=== PATIENT | male | born 1985 | race Caucasian/White ===

== ENCOUNTER 2018-03-09 19:39 | Emergency (ER) | payer OTHER ==
[~2018-03-09] VITALS: Ht 165.1 cm; Wt 68.2 kg
[2018-03-09 19:41] VITALS: BP 155/91
[2018-03-09] MEDS ORDERED: tetanus & diphtheria toxoid (Td) vaccine 0.5ml IMVAC ONE (19:50)
[2018-03-09] MEDS ORDERED: TETanus/Pertussis (Acell)/Diphther VAC/PF (Tdap-Adult) 0.5ml syringe IMVAC ONE (19:55)
== END 2018-03-09 20:17 ==
LOC: ER 19:40
DX: Z02.89 Encounter for other administrative examinations (principal); S00.01XA Abrasion of scalp, initial encounter; F10.129 Alcohol abuse with intoxication, unspecified; V49.59XA Passenger injured in collision with other motor vehicles in traffic accident, initial encounter; Y93.89 Activity, other specified; Y92.413 State road as the place of occurrence of the external cause; Y99.9 Unspecified external cause status
CPT/HCPCS: 90471; 90715; 99283

== ENCOUNTER 2025-04-06 07:51 | Inpatient (IN) | payer BC ==
[2025-04-03 17:15] LABS: LEUKOCYTE ESTERASE ,URINE NEGATIVE (Neg); NITRITES, URINE NEGATIVE (Neg); OCCULT BLOOD,URINE MODERATE (Neg)
[2025-04-03 17:18] LABS: UA COLLECTION TYPE NON-SPECIFIED
[2025-04-03 17:22] LABS: MEAN PLATELET VOLUME 6.9 FL (7.4-10.4); PRE OP HEMATOCRIT 45.7 % (42.0-52.0); PRE OP HEMOGLOBIN 16.0 g/dL (14.0-17.9); PRE OP WHITE BLOOD COUNT 6.3 10'3 (4.8-10.8); RED CELL DISTRIBUTION WIDTH 14.2 % (11.5-14.5)
[2025-04-03 17:32] LABS: PRE OP INR 1.0 INR; PRE OP PROTIME 10.3 SECONDS (9.0-12.0)
[2025-04-03 17:37] LABS: CREATININE 0.90 MG/DL (0.60-1.10); ETHANOL 231 MG/DL (<10); MUCUS STRANDS NONE SEEN /LPF (Neg); PRE OP ANION GAP 11 (8-16); PRE OP BILIRUB, TOTAL 0.7 MG/DL (0.0-1.0); PRE OP GLUCOSE 121 MG/DL (70-104); PRE OP SODIUM 140 MMOL/L (135-145); SQUAMOUS EPITHELIAL CELL,UR NONE SEEN /LPF (FEW); TOTAL CARBON DIOXIDE 30.2 MMOL/L (24-32); eGFR > 90 ML/MIN
[2025-04-03 17:40] LABS: PRE OP POTASSIUM 3.3 MMOL/L (3.4-5.1)
[2025-04-03 17:41] LABS: PRE OP ALT 87 U/L (30-65); PRE OP AST 120 U/L (10-37)
--- NOTE | 2025-04-03 17:41 | ELECTROCARDIOGRAPH REPORT ---
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 PRADEEP Marrufo Measurements Intervals [place] Rate: 94 P: 60 MT: 153 QRS: 68 QRSD: 116 T: 1 QT: 355 QTc: 444 Interpretive Statements Sinus rhythm Incomplete right bundle branch block Probable left ventricular hypertrophy ST elev, probable normal early repol pattern Electronically Signed On 04-03-2025 20:22:[address] PRADEEP Marrufo Please click the below link to view image of tracing.
[2025-04-03 17:50] LABS: PRE OP PARTIAL THROMB. TIME 25.0 SECONDS (22-32)
[2025-04-03 18:59] LABS: PRE OP PLATELET COUNT 44 X10'3 (140-440)
--- NOTE | 2025-04-03 21:15 | RADIOLOGY REPORT ---
CHEST RADIOGRAPH Indication: PRE OP CXR, pain Technique: Frontal and lateral view of the chest was obtained Comparison: None FINDINGS: Lines and Tubes: None Lungs: Clear Pleura: No effusion. No pneumothorax. Cardiomediastinal contours: Unremarkable Bones: Unremarkable IMPRESSION: No evidence of acute disease.
[~2025-04-06] VITALS: Ht 167.6 cm; Wt 86.7 kg
[2025-04-06] VITALS (18 sets, daily range): BP systolic 72–168; BP diastolic 41–92; PULSE 69–167; RESP 12–23; TEMP 97.2–98.8; O2SAT 40–100
[2025-04-06 06:35] LABS: ABG BASE EXCESS 4.6 mmol/L (-2.0-3.0); ABG HCO3 27.4 mmol/L (21.0-28.0); ABG OXYGEN SATURATION 91.6 % (94.0-98.0); ABG PCO2 (T) 35.2 mmHg (35.0-48.0); ABG PH (T) 7.509 (7.350-7.450); ABG PO2 (T) 58.4 mmHg (83.0-108.0); ALLEN'S TEST POSITIVE; FCOHb 6.5 % (0.5-1.5); FHHb 7.8 % (0.0-5.0); FIO2 21.0 mmHg/%; FMetHb 0.1 % (0.0-1.5); FO2Hb 85.6 % (94.0-98.0); MODE RA; PATIENT TEMPERATURE 37.0; TOTAL HEMOGLOBIN 17.0 G/dl (13.5-17.5)
[~2025-04-06 07:51] MED LIST: LOSA-415 PO; dextrose 50%-water 50ml dispensing syringe IV PRN; insulin glargine (Lantus) pen - multi-dose SQ PRN; midazolam 1 mg/ML 2ml injection IV PRN
[2025-04-06] MEDS ORDERED: vancomycin 1,000mg inj ONE (07:54)
[2025-04-06 08:58] LABS: MEAN PLATELET VOLUME 8.2 FL (7.4-10.4); PRE OP HEMATOCRIT 43.2 % (42.0-52.0); PRE OP HEMOGLOBIN 14.9 g/dL (14.0-17.9); PRE OP WHITE BLOOD COUNT 6.0 10'3 (4.8-10.8); RED CELL DISTRIBUTION WIDTH 14.4 % (11.5-14.5)
[2025-04-06 09:04] LABS: TOTAL CARBON DIOXIDE 24.6 MMOL/L (24-32)
[2025-04-06 09:05] LABS: CREATININE 0.74 MG/DL (0.60-1.10); eCRCL 120 ML/MIN; eGFR > 90 ML/MIN
[2025-04-06 09:10] LABS: ETHANOL < 10 MG/DL (<10)
[2025-04-06] MEDS ORDERED: SUfentanil 50mcg/ml 1ml amp IV ONE (09:18)
[2025-04-06] MEDS ORDERED: MIDAZolam 1mg/ml 10ml vial ONE (09:18)
[2025-04-06 09:25] LABS: PRE OP PLATELET COUNT 38 X10'3 (140-440)
[2025-04-06] MEDS ORDERED: fentaNYL/PF 50MCG/1 ML 2ML syringe IV PRN (09:30)
[2025-04-06] MEDS ORDERED: midazolam 100mg in NS 100ml 100 ML IV SCH (09:30)
[2025-04-06] MEDS ORDERED: FENTANYL-0.9 % NACL/PF 100 ML IV SCH (09:30)
[2025-04-06] MEDS: metoprolol tartrate 12.5mg (1/2 tablet) PO ONE (09:51)
[2025-04-06] MEDS: mupirocin 2% nasal ointment 1gm UD NS ONE (09:54)
[2025-04-06] MEDS: ceFAZolin 2gm/dext,iso 50mL 50 ML IV ONE (09:54)
[2025-04-06] MEDS: VANCOMYCIN/WATER FOR INJ (PEG) 1.5GM/300 ML IVPB IV ONE (09:56)
[2025-04-06 10:14] LABS: INR 1.0 INR; PRE OP PARTIAL THROMB. TIME 24 SECONDS (22-32)
[2025-04-06] MEDS: midazolam 1 mg/ML 2ml injection IV ONE (11:53)
[2025-04-06 12:27] LABS: ABG BASE EXCESS -0.5 mmol/L (-2.0-3.0); ABG HCO3 23.7 mmol/L (21.0-28.0); ABG OXYGEN SATURATION 99.6 % (94.0-98.0); ABG PCO2 37.8 mmHg (35.0-48.0); ABG PH 7.416 (7.350-7.450); CL (ABG) 104 mmol/L (98-107); FCOHb 0.5 % (0.5-1.5); FHHb 0.4 % (0.0-5.0); FMetHb 0.2 % (0.0-1.5); FO2Hb 98.9 % (94.0-98.0); GLUCOSE (ABG) 93 mg/dl (65-95); IONIZED CA (ABG) 1.10 mmol/L (1.15-1.33); K (ABG) 3.0 mmol/L (3.40-4.50); TOTAL HEMOGLOBIN 14.3 G/dl (13.5-17.5)
[2025-04-06] MEDS ORDERED: albumin (Human) 5% 250ml 250 ML IV ONE (12:28)
[2025-04-06] MEDS ORDERED: rocuronium 10mg/ml inj IV ONE ×3 (12:47→12:48)
[2025-04-06] MEDS ORDERED: propofol inj 20 ML IV ONE (12:47)
[2025-04-06] MEDS ORDERED: LIDOcaine 2% (20mg/ml) 5ml vial ONE (12:48)
[2025-04-06] MEDS ORDERED: 0.9 % SODIUM CHLORIDE 10 ML VIAL ONE (12:48)
[2025-04-06] MEDS: Insulin Reg/NS 100units/100mL 100 ML IV SCH ×3 (12:48→15:02)
[2025-04-06] MEDS ORDERED: phenylephrine 10mg/ml inj. ONE (12:48)
[2025-04-06] MEDS: ringers solution, lacted 1,000 ML IV SCH (12:48)
[2025-04-06] MEDS ORDERED: albumin (human) 25% 100 ML IV solution IV ONE (12:54)
[2025-04-06] MEDS ORDERED: isoflurane 100ml inhalation liquid IH ONE (12:54)
[2025-04-06 13:10] LABS: ACTIVATED CLOTTING TIME 519.0 SEC (101-148)
[2025-04-06 13:22] LABS: ABG BASE EXCESS -0.1 mmol/L (-2.0-3.0); ABG HCO3 24.7 mmol/L (21.0-28.0); ABG OXYGEN SATURATION 99.2 % (94.0-98.0); ABG PCO2 41.1 mmHg (35.0-48.0); ABG PH 7.397 (7.350-7.450); CL (ABG) 101 mmol/L (98-107); FCOHb 0.3 % (0.5-1.5); FHHb 0.8 % (0.0-5.0); FMetHb 0.1 % (0.0-1.5); FO2Hb 98.8 % (94.0-98.0); GLUCOSE (ABG) 118 mg/dl (65-95); IONIZED CA (ABG) 0.98 mmol/L (1.15-1.33); K (ABG) 3.4 mmol/L (3.40-4.50); TOTAL HEMOGLOBIN 11.0 G/dl (13.5-17.5)
[2025-04-06 13:30] LABS: ACT @ 1.70 U 262 SEC (193-297); ACT @ 2.84 U 343 SEC (260-420); BASELINE ACT 125 SEC (101-148); PATIENT WEIGHT 81.6k KG
[2025-04-06 13:33] LABS: ACTIVATED CLOTTING TIME 599.0 SEC (101-148)
[2025-04-06 13:49] LABS: ABG BASE EXCESS -2.7 mmol/L (-2.0-3.0); ABG HCO3 22.3 mmol/L (21.0-28.0); ABG OXYGEN SATURATION 99.4 % (94.0-98.0); ABG PCO2 39.3 mmHg (35.0-48.0); ABG PH 7.371 (7.350-7.450); CL (ABG) 102 mmol/L (98-107); FCOHb 0.3 % (0.5-1.5); FHHb 0.6 % (0.0-5.0); FMetHb 0.1 % (0.0-1.5); FO2Hb 99.0 % (94.0-98.0); GLUCOSE (ABG) 154 mg/dl (65-95); IONIZED CA (ABG) 1.02 mmol/L (1.15-1.33); K (ABG) 3.6 mmol/L (3.40-4.50); TOTAL HEMOGLOBIN 11.5 G/dl (13.5-17.5)
[2025-04-06 13:59] LABS: ACTIVATED CLOTTING TIME 499.0 SEC (101-148)
[2025-04-06 14:13] LABS: ABG BASE EXCESS -0.5 mmol/L (-2.0-3.0); ABG HCO3 23.4 mmol/L (21.0-28.0); ABG OXYGEN SATURATION 99.2 % (94.0-98.0); ABG PCO2 35.6 mmHg (35.0-48.0); ABG PH 7.436 (7.350-7.450); CL (ABG) 103 mmol/L (98-107); FCOHb 0.0 % (0.5-1.5); FHHb 0.8 % (0.0-5.0); FMetHb 0.3 % (0.0-1.5); FO2Hb 98.9 % (94.0-98.0); GLUCOSE (ABG) 148 mg/dl (65-95); IONIZED CA (ABG) 1.20 mmol/L (1.15-1.33); K (ABG) 3.3 mmol/L (3.40-4.50); TOTAL HEMOGLOBIN 10.3 G/dl (13.5-17.5)
[2025-04-06 14:16] LABS: ACTIVATED CLOTTING TIME 118 SEC (101-148)
[2025-04-06] MEDS ORDERED: dexamethasone sod phosphate 4mg/ml inj. ONE (14:34)
[2025-04-06] MEDS ORDERED: ondansetron/PF 4mg/2ml inj ONE (14:34)
[2025-04-06] MEDS ORDERED: dextrose 50%-water 50ml dispensing syringe IV PRN (14:45)
[2025-04-06] MEDS ORDERED: potassium CL 10mEq/100ml bag 100 ML IV PRN (14:45)
[2025-04-06] MEDS ORDERED: potassium Cl 40MEQ/270ML bag 250 ML IV PRN (14:45)
[2025-04-06] MEDS ORDERED: bisacodyl 10mg suppository rectal RC PRN (14:45)
[2025-04-06] MEDS ORDERED: magnesium sulf-water 4G/100mL 100 ML IV PRN (14:45)
[2025-04-06] MEDS ORDERED: mineral oil 133ml enema RC PRN (14:45)
[2025-04-06] MEDS ORDERED: niCARDipine-NS 40mg/200ml IVPB 200 ML IV PRN (14:45)
[2025-04-06] MEDS ORDERED: sodium phosphate inj. 30 MMOL in dextrose 5%-water 250 ML IV PRN (14:45)
[2025-04-06] MEDS ORDERED: potassium Cl 40MEQ/1/2NS 520ml 520 ML IV PRN (14:45)
[2025-04-06] MEDS ORDERED: insulin glargine (Lantus) pen - multi-dose SQ PRN (14:45)
[2025-04-06] MEDS ORDERED: NORepinephrine 8mg/ 250ml NS 250 ML IV PRN (14:45)
[2025-04-06] MEDS ORDERED: metoclopramide 5 mg/ml inj IV PRN (14:45)
--- NOTE | 2025-04-06 14:52 | OPERATIVE REPORT ---
Operative Report Operative Report Cardiovascular surgery operative report 06 April 2025 Preoperative diagnosis: severe mitral insufficiency, severe thrombocytopenia, ETOH abuse Postop diagnosis: Same Procedure: Mitral valve repair with a quadrangular resection of P2 scallop and 34 mm physio two ring annuloplasty Surgeon: Dr. Cruz Walters assistant professor surgical technology: Dr. Tomy Richter and Jamar Carpenter PA-C Anesthesia: General via endotracheal tube Dr. Mathias Complications: None EBL: 200 mL Procedure: With the patient was taken to the operating room placed in the supine position. Following the induction of general oral endotracheal anesthesia and the placement of appropriate lines for monitoring the anterior chest, abdomen and bilateral lower extremities were prepped and draped sterilely. A median sternotomy was performed in standard fashion the patient was systemically heparinized. The pericardium was opened in midline and suspended. Single aortic and right atrial cannula were placed for cardiopulmonary bypass. After ensuring an ACT of greater than 300 seconds cardiopulmonary bypass was instituted. The aorta was crossclamped and the heart was arrested with cold blood [place] cardioplegia delivered antegrade through the root. The left atrium was was opened anterior to the right superior pulmonary vein and a self-retaining retractor was placed. Visualization of the valve was good. 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 This area of the leaflet was carefully excised and the posterior annulus was plicated with the pledgeted mattress suture of 2-0 Ethibond. This reapproximated the cut edges of the posterior leaflet. These were reapproximated with interrupted riwbwn-ih-egsmce of five 0 Prolene. This recreated the posterior leaflet. The ventricle was distended with cold saline in the anterior leaflet was measured. A 34 mm physio two ring was chosen. This was implanted into the annulus using interrupted horizontal mattress sutures of pledgeted 2-0 Ethibond. The ring was easily seated and the sutures were then tied to complete the implant. The left ventricle was again distended with cold saline. There was no residual insufficiency. The orifice of the left atrial appendage was then oversewn with a double suture line of 4-0 Prolene for exclusion purposes. The atriotomy was then closed with a running 3-0 Prolene suture. Prior to completing and tying the suture line multiple Valsalva maneuvers were performed to facilitate de- airing of the pulmonary veins through the atrial suture line. This was then tied under a pool of blood to prevent any entrainment of air. The patient was given 1 L of warm blood antegrade while temporary pacing wires placed the anterior surface of the right ventricle and right atrium. With a suction vent in the ascending aorta on high the aortic crossclamp was removed. Ventilation was resumed and the patient was allowed to begin ejecting to a pressure of 80-90 millimeter of mercury. Transesophageal echocardiography was used to confirm adequacy of de-airing. At that point he was weaned from cardiopulmonary bypass and decannulated in standard fashion. Protamine solution was administered to reverse heparinization and careful hemostasis was achieved throughout the mediastinum. Platelets were also transfused two due to his preoperative severe thrombocytopenia. A 28 Spanish Jassi drain was placed through the diaphragmatic aspect of the pericardium with a 32 Spanish straight chest tube placed anterior to the mediastinum. These were both secured to skin with 1. Silk. The pericardial fat was loosely approximated in the midline with interrupted 2-0 Ethibond, taking away kinking or compression of the underlying grafts. The chest was then closed by 1st treating the sternal edges with vancomycin paste. The sternum was reapproximated in the midline with interrupted ivcqqj-mm-jalwdm of 7. Stainless steel wire in concert with zip fix sternal bands. The midline fascia, subcutaneous tissue and skin were closed in layers. Sterile dressings were applied and the chest tube was attached to water-seal. The patient was then returned to the ICU in critical but stable condition, having tolerated the procedure satisfactorily. There were no complications. Sponge, needle and instrument counts were correct x2 at the case. Jamar Carpenter PA-C was present for and assisted throughout the entire procedure. CRUZ WALTERS III, MD Apr 06, 2025 14:52
[2025-04-06 15:16] LABS: MEAN PLATELET VOLUME 7.4 FL (7.4-10.4); RED CELL DISTRIBUTION WIDTH 14.3 % (11.5-14.5)
[2025-04-06 15:17] LABS: ABG BASE EXCESS -0.5 mmol/L (-2.0-3.0); ABG HCO3 23.1 mmol/L (21.0-28.0); ABG OXYGEN SATURATION 99.2 % (94.0-98.0); ABG PCO2 (T) 32.8 mmHg (35.0-48.0); ABG PH (T) 7.462 (7.350-7.450); ABG PO2 (T) 177.6 mmHg (83.0-108.0); FCOHb 0.5 % (0.5-1.5); FHHb 0.8 % (0.0-5.0); FIO2 100.0 mmHg/%; FMetHb 0.3 % (0.0-1.5); FO2Hb 98.4 % (94.0-98.0); MODE SIMV VC; PATIENT TEMPERATURE 36.2; PEEP 5 cm H2O; RESPIRATORY RATE 12 b/min; TIDAL VOLUME 600 mL; TOTAL HEMOGLOBIN 10.9 G/dl (13.5-17.5)
--- NOTE | 2025-04-06 15:24 | ELECTROCARDIOGRAPH REPORT ---
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 PRADEEP Marrufo Measurements Intervals [place] Rate: 103 P: 179 DC: 109 QRS: 72 QRSD: 99 T: 31 QT: 394 QTc: 516 Interpretive Statements Sinus or ectopic atrial tachycardia RSR' in V1 or V2, probably normal variant Prolonged QT interval Electronically Signed On 04-07-2025 9:23:[address] PRADEEP Marrufo Please click the below link to view image of tracing.
[2025-04-06 15:29] LABS: APTT 29 SECONDS (22-32); INR 1.2 INR
--- NOTE | 2025-04-06 15:32 | RADIOLOGY REPORT ---
CHEST RADIOGRAPH Indication: POST OP Technique: Single frontal view of the chest was obtained Comparison: DI CHEST,TWO VIEWS on DOS: 04/03/25 FINDINGS: Lines and Tubes: Right swan-Rhiannon catheter tip in the pulmonary artery. Nasogastric tube tip in the s tomach. Endotracheal tube 5 cm from the crys. Right central venous catheter tip in the SVC. Media stinal drain is present. Lungs: No focal consolidation. Pleura: No effusion. No pneumothorax. Cardiomediastinal contours: Unremarkable Bones: No acute osseous abnormality. IMPRESSION: Status post median sternotomy.
[2025-04-06 15:33] LABS: CREATININE 0.69 MG/DL (0.60-1.10); PHOSPHORUS 3.6 MG/DL (2.3-4.5); TOTAL CARBON DIOXIDE 26.0 MMOL/L (24-32); eCRCL 128 ML/MIN; eGFR > 90 ML/MIN
[2025-04-06] MEDS: dexmedetomidin/NS 400mcg/100ml 100 ML IV PRN (15:43)
[2025-04-06] MEDS: morphine 4 MG/ML inj SYRINge IV PRN (15:43)
[2025-04-06] MEDS: albumin (Human) 5% 250ml 250 ML IV PRN (15:44)
[2025-04-06] MEDS: ceFAZolin/D5W- 1GM premix 50 ML IV SCH (16:36)
[2025-04-06] MEDS: potassium Cl 20mEq/100mL bag 100 ML IV PRN (16:37)
[2025-04-06] MEDS: amiodarone/D5 360MG/200ML BAG 200 ML IV SCH (17:18)
[2025-04-06] MEDS: metoprolol tartrate 1mg/ml inj IV STA (17:18)
[2025-04-06] MEDS: amiodarone 150mg/dext, iso-os 100 ML IV ONE (17:18)
[2025-04-06] MEDS: metoprolol tartrate 1mg/ml inj IV ONE (17:34)
[2025-04-06] MEDS: [UNRECOGNIZED DRUG - OTHER] PO SCH (17:34)
[2025-04-06] MEDS: ondansetron/PF 4mg/2ml inj IV PRN (17:43)
[2025-04-06] MEDS: vancomycin/NS 1 GM ADD-VANTAGE 250 ML IV SCH (19:43)
[2025-04-06] MEDS: ketorolac trometh 15mg/ml vial 15 MG/ML ML IV SCH (19:43)
[2025-04-06] MEDS: mupirocin 2% nasal ointment 1gm UD NS SCH (19:43)
[2025-04-06] MEDS: HYDROcodone/acetaminophen 10/325mg tab PO PRN (19:44)
[2025-04-06 20:25] LABS: MEAN PLATELET VOLUME 7.4 FL (7.4-10.4); RED CELL DISTRIBUTION WIDTH 14.0 % (11.5-14.5)
[2025-04-06 20:35] LABS: CREATININE 0.93 MG/DL (0.60-1.10); PHOSPHORUS 2.1 MG/DL (2.3-4.5); TOTAL CARBON DIOXIDE 21.8 MMOL/L (24-32); eCRCL 95 ML/MIN; eGFR 90 ML/MIN
[2025-04-06] MEDS: magnesium sulf-water 2g/50mL 50 ML IV PRN (20:53)
[2025-04-06] MEDS: sodium phosphate inj. 15 MMOL in dextrose 5%-water 250 ML IV PRN (22:00)
[2025-04-07] VITALS (26 sets, daily range): BP systolic 97–128; BP diastolic 50–73; PULSE 80; RESP 11–19; O2SAT 90–97
[2025-04-07 02:44] LABS: MEAN PLATELET VOLUME 7.9 FL (7.4-10.4); RED CELL DISTRIBUTION WIDTH 14.3 % (11.5-14.5)
[2025-04-07 03:04] LABS: CREATININE 0.72 MG/DL (0.60-1.10); PHOSPHORUS 4.2 MG/DL (2.3-4.5); TOTAL CARBON DIOXIDE 24.7 MMOL/L (24-32); eCRCL 123 ML/MIN; eGFR > 90 ML/MIN
--- NOTE | 2025-04-07 05:55 | RADIOLOGY REPORT ---
CHEST RADIOGRAPH Indication: POST OP Technique: Single frontal view of the chest was obtained Comparison: DI CHEST,SINGLE VIEW on DOS: 04/06/25, DI CHEST,TWO VIEWS on DOS: 04/03/25 FINDINGS: Lines and Tubes: Median sternotomy. Mediastinal drain and right central venous catheter in satisfact ory position. Lungs: No focal consolidation. Pleura: No effusion. No pneumothorax. Cardiomediastinal contours: Cardiomegaly Bones: No acute osseous abnormality. IMPRESSION: No acute cardiopulmonary disease.
[2025-04-07] MEDS: metoprolol tartrate 12.5mg (1/2 tablet) PO SCH (08:00)
--- NOTE | 2025-04-07 08:20 | PROGRESS NOTE ---
Progress Note CV Providers to CC ~ Antibiotics Ordered?: No Subjective Subjective S/P MV repair POD # 1. Alert, just got back from a walk. Pain is controlled. Did receive platelets yesterday. Objective Vitals Vital Signs Date Time Temp Pulse Resp B/P (MAP) Pulse Ox O2 Delivery O2 Flow Rate FiO2 04/07/25 08:00 97.9 80 12 97/50 (66) 92 Room Air 04/07/25 07:00 1.0 04/06/25 16:35 40 Lab Results: 04/07/25 0202 04/07/25 0202 Objective Lungs - fairly clear Heart - RRR, paced with junctional 40's underlying Abd/Extr - OK Incisions - CDI Coagulation Studies Laboratory Tests Test 04/06/25 12:34 04/06/25 14:20 04/06/25 15:00 Patient Sex (Coag) M Patient Height (Coag) 167cm Patient Weight (Coag) 81.6k KG Patient Blood Volume 5584 ML Pump Volume 1500 ML Total Blood Volume 7084 ML Projected Heparin Concentration 3.0 MG/KG Heparin [place] 86 Calculated Heparin Bolus 14014 UNITS Activated Coagulation Time Baseline 125 SEC (101-148) Activated Coag Time 1.70 U/mL 262 SEC (193-297) Activated Coag Time 2.84 U/mL 343 SEC (260-420) Heparin Level (COAG) 0 MG/KG Calculated Heparin Req (Hep Assay) 72073 UNITS Calculated Protamine Req (Hep Assay 0 MG Activated Clotting Time 118 SEC (101-148) Prothrombin Time 12.4 SECONDS (9.0-12.0) H INR International Normalized Ratio 1.2 INR Activated Partial Thromboplast Time 29 SECONDS (22-32) Coagulation Comments Cardiac Rhythm: AV Paced Problem\Assessment\Plan Additional Plan POD # 1 Doing very well. DC art line. Continue ambulation/ pulm toilet. Hgb 8.4, monitor. Sepsis Screening Reassessment Date: Apr 07, 2025 Supervising Co-signing Provider: LINDSAY Wong Apr 07, 2025 08:20
[2025-04-07 08:32] LABS: ABG PO2 403.9 mmHg (83.0-108.0)
[2025-04-07 08:32] LABS: ABG PO2 453.4 mmHg (83.0-108.0)
[2025-04-07 08:32] LABS: ABG PO2 432.0 mmHg (83.0-108.0)
[2025-04-07 08:33] LABS: ABG PO2 462.2 mmHg (83.0-108.0)
[2025-04-07] MEDS: INSULIN LISPRO 100 UNIT/ML INSULN.PEN MULTI-DOSE SQ SCH (12:54)
[2025-04-07] MEDS ORDERED: mineral oil/petrolatum ophthal oint EACHEYE SCH (14:00)
--- NOTE | 2025-04-07 18:22 | CARDIOLOGY REPORT ---
APPROVED REPORT EXAM: Intraoperative transesophageal 2D, 3D, spectral and color flow Doppler echocardiogram. Study contains pre- and post-op images. Patient Location: CVOR Blood Pressure: 136/90 mmHg Rhythm: SINUS Indications SEVERE MITRAL REGURGITATION WITH A FLAIL POSTERIOR LEAFLET HYPERTENSION - 2018 34 mm Hernan Kline Physio II MV ring CARMEN PROBE PASSED BY: Tatyana WILLIAMSON MD Fryer Operator: Mimi Hightower MD / CV SURGEON: Mark HDEZ MD Previous echo: 10/29/24 CVC EF: 65%; mLVE; mCLVH; nlRV; sevLAE; sevMVP-PML; mod/sevMR-ECCENTRIC; noP E; LEFT VENTRICLE PRE: Normal LV size and wall thickness. Overall systolic function is normal. LVEF is 55-60%. POST-OP: Unchanged. RIGHT VENTRICLE PRE: RV is normal size and function. POST: Unchanged. ATRIA PRE: The left atrium appears at least moderately dilated. POST: Unchanged. AORTIC VALVE PRE: Trileaflet AV appears minimally sclerotic without stenosis or insufficiency. POST-OP: Unchanged. MITRAL VALVE PRE: Normal MV annulus with thickened leaflets without stenosis. Posterior leaflet flail with severe eccentric (anterior directed) regurgitation. POST: 34 mm Hernan Kline Physio II MV ring repair appears well seated with normal function. No residual mitral regurgitation post repair with BP of 145 /88. Mean gradient of 3.33 mmHG. Peak velocity is measured at 124 cm/sec. TRICUSPID VALVE PRE: TV appears structurally normal with trace regurgitation. POST: Unchanged. PULMONIC VALVE PRE: Normal PV without stenosis, physiologic insufficiency. Jenks-Rhiannon catheter in the right heart acr oss the pulmonic valve. POST-OP: Unchanged. GREAT VESSELS PRE: Aortic root is normal in size. Ascending aorta is normal in size. POST-OP: Unchanged. PERICARDIUM PRE: Normal pericardium. No effusion. POST: Unchanged. CONCLUSION PRE: Normal LV size and wall thickness. Overall systolic function is normal. LVEF is 55-60%. POST-OP: Unchanged. PRE: RV is normal size and function. POST: Unchanged. PRE: The left atrium appears at nahid st moderately dilated. POST: Unchanged. PRE: Trileaflet AV appears minimally sclerotic without steno sis or insufficiency. POST-OP: Unchanged. PRE: Normal MV annulus with thickened leaflets without sten osis. Posterior leaflet flail with severe eccentric (anterior directed) regurgitation. POST: 34 mm Ca rpentier Kline Physio II MV ring repair appears well seated with normal function. No residual ju l regurgitation post repair with BP of 145/88. Mean gradient of 3.33 mmHG. Peak velocity is measured at 124 cm/sec. PRE: TV appears structurally normal with trace regurgitation. POST: Unchanged. PRE: No rmal pericardium. No effusion. POST: Unchanged. Conclusion PRE: Normal LV size and wall thickness. Overall systolic function is normal. LVEF is 55-60%. POST-OP: Unchanged. PRE: RV is normal size and function. POST: Unchanged. PRE: The left atrium appears at least moderately dilated. POST: Unchanged. PRE: Trileaflet AV appears minimally sclerotic without stenosis or insufficiency. POST-OP: Unchange d. PRE: Normal MV annulus with thickened leaflets without stenosis. Posterior leaflet flail with severe eccentric (anterior directed) regurgitation. POST: 34 mm Hernan Kline Physio II MV ring repair appears well seated with normal function. No residual mitral regurgitation post repair with BP of 145/88. Mean gradient of 3.33 mmHG. Peak veloci ty is measured at 124 cm/sec. PRE: TV appears structurally normal with trace regurgitation. POST: Unchanged. PRE: Normal pericardium. No effusion. POST: Unchanged.
[2025-04-08] VITALS (17 sets, daily range): BP systolic 100–121; BP diastolic 56–86; PULSE 66–80; RESP 10–22; TEMP 97.7–99.3; O2SAT 90–98
[2025-04-08 02:30] LABS: MEAN PLATELET VOLUME 7.7 FL (7.4-10.4); RED CELL DISTRIBUTION WIDTH 15.0 % (11.5-14.5)
[2025-04-08 02:44] LABS: CREATININE 0.86 MG/DL (0.60-1.10); PHOSPHORUS 2.9 MG/DL (2.3-4.5); TOTAL CARBON DIOXIDE 26.7 MMOL/L (24-32); eCRCL 103 ML/MIN; eGFR > 90 ML/MIN
[2025-04-08 03:44] LABS: BANDS% (MANUAL) 5.0 % (0-10); LYMPHOCYTES % (MANUAL) 11.0 % (21-51); MONOCYTES % (MANUAL) 14.0 % (2-12); NEUTROPHILS % (MANUAL) 70.0 % (42-75); PLATELET ESTIMATE DECREASED
[2025-04-08] MEDS: potassium Cl 20 mEq SR tablet PO PRN (05:02)
--- NOTE | 2025-04-08 07:08 | RADIOLOGY REPORT ---
CHEST RADIOGRAPH Indication:POST OP Technique: Single frontal view of the chest was obtained COMPARISON: 04/07/2025 FINDINGS: Lines and Tubes: Unchanged. Lungs: Clear Pleura: No effusion. No pneumothorax. Cardiomediastinal contours: Cardiomegaly. Bones: Unremarkable IMPRESSION: 1. Cardiomegaly. 2. Lines and tubes unchanged.
--- NOTE | 2025-04-08 08:04 | PROGRESS NOTE ---
Progress Note CV Providers to CC ~ Antibiotics Ordered?: No Subjective Subjective S/P MV repair POD # 2. Doing well, ambulated several times yesterday. Pain is controlled. He has an excellent appetite. He is in SR in the 70's. Pacer is off. Objective Vitals Vital Signs Date Time Temp Pulse Resp B/P (MAP) Pulse Ox O2 Delivery O2 Flow Rate FiO2 04/08/25 05:58 80 15 103/68 (80) 95 Room Air 04/07/25 16:00 97.7 04/07/25 13:45 0 21 Lab Results: 04/08/25 0150 04/08/25 0150 Objective Lungs - fairly clear Heart - RRR, SR Abd/extr - OK Incisions - CDI CT output minimal and serous. Coagulation Studies Laboratory Tests Test 04/06/25 12:34 04/06/25 14:20 04/06/25 15:00 Patient Sex (Coag) M Patient Height (Coag) 167cm Patient Weight (Coag) 81.6k KG Patient Blood Volume 5584 ML Pump Volume 1500 ML Total Blood Volume 7084 ML Projected Heparin Concentration 3.0 MG/KG Heparin [place] 86 Calculated Heparin Bolus 07701 UNITS Activated Coagulation Time Baseline 125 SEC (101-148) Activated Coag Time 1.70 U/mL 262 SEC (193-297) Activated Coag Time 2.84 U/mL 343 SEC (260-420) Heparin Level (COAG) 0 MG/KG Calculated Heparin Req (Hep Assay) 42476 UNITS Calculated Protamine Req (Hep Assay 0 MG Activated Clotting Time 118 SEC (101-148) Prothrombin Time 12.4 SECONDS (9.0-12.0) H INR International Normalized Ratio 1.2 INR Activated Partial Thromboplast Time 29 SECONDS (22-32) Coagulation Comments Cardiac Rhythm: AV Paced Problem\Assessment\Plan Additional Plan POD # [address] Keep PW's one more day. DC CL To PCU. Sepsis Screening Reassessment Date: Apr 08, 2025 Supervising Co-signing Provider: LINDSAY Wong Apr 08, 2025 08:04
[2025-04-08] MEDS ORDERED: potassium Cl 40MEQ/270ML bag 250 ML IV PRN (08:10)
[2025-04-08] MEDS ORDERED: potassium CL 10mEq/100ml bag 100 ML IV PRN (08:10)
[2025-04-08] MEDS ORDERED: potassium Cl 20 mEq SR tablet PO PRN ×2 (08:10)
[2025-04-08] MEDS ORDERED: potassium Cl 40MEQ/1/2NS 520ml 520 ML IV PRN (08:10)
[2025-04-08] MEDS ORDERED: magnesium sulf-water 4G/100mL 100 ML IV PRN (08:10)
[2025-04-08] MEDS ORDERED: potassium Cl 20mEq/100mL bag 100 ML IV PRN (08:10)
[2025-04-08] MEDS: pantoprazole 40mg Tablet.DR PO SCH (08:18)
[2025-04-08] MEDS: magnesium sulf-water 2g/50mL 50 ML IV PRN (08:19)
[2025-04-08] MEDS: magnesium hydroxide 30ml (MOM) UD suspension PO PRN (09:07)
--- NOTE | 2025-04-08 16:31 | PROCEDURE NOTE - Respiratory ---
Procedure Note-Respiratory Providers to CC Copies To 1: MARIA GUADALUPE RAY MD; PREETHI HDEZ III, MD Procedure Name: This is a preop spirometry examination dated April 03, 2025. The forced vital capacity and the FEV1 measurements are normal. The FEV1 ratio is normal. The flow rate measurements are normal with the exception of slight loss of the terminal flow rate FEF 75%. Bronchodilator was not administered as part of this test. Conclusion: Normal or very near normal screening spirometry study. We have no previous studies for comparison. A blood gas was drawn from this patient while the patient was breathing ambient air. The blood pH is borderline alkalotic. The pCO2 is normal. There is significant room air hypoxemia with the room air PO2 at 58 mmHg. Also noted is 6% of his hemoglobin is occupied by carbon monoxide. It is likely that the patient has been smoking cigarettes recently. NADEEM GÓMEZ MD Apr 08, 2025 16:31
--- NOTE | 2025-04-08 17:55 | PATHOLOGY REPORT ---
[facility] [address] [place] [address] SURGICAL PATHOLOGY REPORT CaseNumber: [id number] Surgeon:Cruz Walters P.A.-C CLINICAL INFORMATION CLINICAL INFORMATION: Mitral insufficiency and thrombocytopenia. DIAGNOSIS DIAGNOSIS: A.BONE; BIOPSY - BONE MARROW SHOWING TRILINEAL HEMATOPOIESIS. - NORMAL TO SLIGHTLY INCREASED NUMBERS OF MEGAKARYOCYTES. - SEE COMMENT. DIAGNOSIS: B.HEART, MITRAL VALVE; REPLACEMENT - HEART VALVE LEAFLETS WITH CALCIFIC DEGENERATIVE CHANGES. COMMENT NOTE: Normal to slightly increased numbers of megakaryocytes with peripheral thrombocytopenia suggest s peripheral loss/destruction. Dr. Fernandez Venegas, hematopathologist, has reviewed part A and agrees with the interpretation. NOTE: Normal to slightly increased numbers of megakaryocytes with peripheral thrombocytopenia suggest s peripheral loss/destruction. Dr. Fernandez Venegas, hematopathologist, has reviewed part A and agrees with the interpretation. MICROSCOPIC DESCRIPTION A. BONE MICROSCOPIC DESCRIPTION: One H&E stained slide from part A is examined. Present is trabecular bone wh ich contains marrow elements showing trilineal hematopoiesis. The M:E ratio is estimated at 1:1. Myel oid maturation includes normal numbers of neutrophils. The megakaryocytes are normal in morphology an d are normal to perhaps mildly increased in in number, the latter finding suggests peripheral cause o f thrombocytopenia. Metastatic carcinoma is not identified. B. HEART, MITRAL VALVE MICROSCOPIC DESCRIPTION: Performed. GROSS DESCRIPTION A. BONE GROSS DESCRIPTION: Received without fixative labeled with the patient's name, number, and "bone marro w biopsy" is a 1 cm aggregate of irregularly shaped pieces of bone and clotted blood. The specimen is entirely submitted as A1 following decalcification. B. HEART, MITRAL VALVE GROSS DESCRIPTION: Received in formalin labeled with the patient's name, number, and "mitral valve le aflets" is a 3 x 2 x 1.5 cm mildly calcified mitral valve. No vegetations or perforations are identi fied. No sections. Electronically signed by: Donato Jackson M.D. 04/08/2025 5:24:00 PM
[2025-04-08] MEDS: magnesium Cl slow-release 64mg tablet PO SCH (19:25)
[2025-04-08] MEDS: HYDROcodone/acetaminophen 10/325mg tab PO PRN (23:32)
[2025-04-09 02:00] VITALS: BP 112/63; PULSE 73; RESP 18; TEMP 97.2; O2SAT 97
[2025-04-09 06:00] VITALS: BP 112/70; PULSE 71; RESP 13; TEMP 99.7; O2SAT 96
[2025-04-09 06:35] LABS: MEAN PLATELET VOLUME 7.3 FL (7.4-10.4); RED CELL DISTRIBUTION WIDTH 14.7 % (11.5-14.5)
[2025-04-09 06:41] LABS: CREATININE 0.85 MG/DL (0.60-1.10); TOTAL CARBON DIOXIDE 27.9 MMOL/L (24-32); eCRCL 104 ML/MIN; eGFR > 90 ML/MIN
[2025-04-09 07:46] VITALS: BP_SYST 112; PULSE 71
[2025-04-09 07:48] LABS: EOSINOPHILS % (MANUAL) 1.0 % (0-6); LYMPHOCYTES % (MANUAL) 16.0 % (21-51); MONOCYTES % (MANUAL) 21.0 % (2-12); NEUTROPHILS % (MANUAL) 62.0 % (42-75); PLATELET ESTIMATE DECREASED
[2025-04-09 08:00] VITALS: RESP 18; O2SAT 96
--- NOTE | 2025-04-09 09:08 | PROGRESS NOTE ---
Progress Note CV Providers to CC ~ Antibiotics Ordered?: No Subjective Subjective S/P MV repair POD # 3. Ambulating well without any difficulty. Pain is controlled. Wants to go home today. Objective Vitals Vital Signs Date Time Temp Pulse Resp B/P (MAP) Pulse Ox O2 Delivery O2 Flow Rate FiO2 04/09/25 08:00 18 96 Room Air 0.0 21 04/09/25 07:46 71 04/09/25 02:00 97.2 112/63 (79) Lab Results: 04/09/25 0621 04/09/25 0621 Objective Lungs - clear Heart - RRR, maintaining SR in the 70's Abd/extr - OK Incisions - CDI Coagulation Studies Laboratory Tests Test 04/06/25 12:34 04/06/25 14:20 04/06/25 15:00 Patient Sex (Coag) M Patient Height (Coag) 167cm Patient Weight (Coag) 81.6k KG Patient Blood Volume 5584 ML Pump Volume 1500 ML Total Blood Volume 7084 ML Projected Heparin Concentration 3.0 MG/KG Heparin [place] 86 Calculated Heparin Bolus 76960 UNITS Activated Coagulation Time Baseline 125 SEC (101-148) Activated Coag Time 1.70 U/mL 262 SEC (193-297) Activated Coag Time 2.84 U/mL 343 SEC (260-420) Heparin Level (COAG) 0 MG/KG Calculated Heparin Req (Hep Assay) 96996 UNITS Calculated Protamine Req (Hep Assay 0 MG Activated Clotting Time 118 SEC (101-148) Prothrombin Time 12.4 SECONDS (9.0-12.0) H INR International Normalized Ratio 1.2 INR Activated Partial Thromboplast Time 29 SECONDS (22-32) Coagulation Comments Cardiac Rhythm: Sinus Rhythm Problem\Assessment\Plan Additional Plan POD # 3 SR CV stable DC home. F/u 2 weeks. Sepsis Screening Reassessment Date: Apr 09, 2025 Supervising Co-signing Provider: LINDSAY Wong Apr 09, 2025 09:08
[2025-04-09] MEDS ORDERED: HYDR-3972 PO (09:10)
[2025-04-09] MEDS ORDERED: LOP12.5T PO (09:10)
[2025-04-09] MEDS ORDERED: ASPI81TA53 PO (09:10)
--- NOTE | 2025-04-09 09:47 | DISCHARGE SUMMARY ---
DATE OF DISCHARGE: 04/09/2025 DICTATING PHYSICIAN: Jamar Carpenter ADMITTING PHYSICIAN: Cruz Walters MD TIRE ADJUSTER: Elodia Hightower MD ADMITTING DIAGNOSES: Severe mitral regurgitation with posterior leaflet prolapse. Thrombocytopenia. DISCHARGE DIAGNOSES: Severe mitral regurgitation with posterior leaflet prolapse along with status post mitral valve replacement. Thrombocytopenia. COMPLICATIONS: Postoperatively none. CONDITION ON DISCHARGE: Stable. PROGNOSIS: Good. SUMMARY: This is a very pleasant 39-year-old patient who has been having his blood pressure monitored in the last several years. He was seen last May due to an upper respiratory tract infection and was noted to have a heart murmur. He was referred back to Dr. Hightower's office where echocardiography revealed severe mitral insufficiency with posterior leaflet prolapse. Cardiac catheterization at [facility] showed no significant coronary artery disease. CARMEN confirmed severe mitral regurgitation with flow reversal in the pulmonary veins. He was referred for consideration of mitral valve repair by Dr. Walters. He was felt to be a good operative candidate and was admitted electively on 04/06 and taken to the operating room where he underwent mitral valve repair with a quadrangular resection of P2 scallop and a 34-mm Physio II annuloplasty ring along with transesophageal echocardiography. Following the operation, the patient was transferred to the CICU in stable condition where the following morning he was awake, alert, extubated, and neurologically intact. Pain was well controlled. He did need some platelet transfusion. Initially, AV pacing was required; however, by postop day #2, he had an underlying sinus rhythm and has maintained sinus rhythm throughout the remainder of his stay. He is now ambulating on his own without any difficulty. He has had bowel movements and he is felt to be stable for discharge home. DISCHARGE PROGRAM: As follows: Followup appointment with Dr. Walters's office in 2 weeks with his special needs nanny, Dr. Hightower in 4 weeks and with his primary physician in 6 weeks. ACTIVITY: As per cardiac rehab instructions. He was instructed to take short showers, to observe falling precautions. No heavy lifting. No driving. DIET: He will be on a regular diet, transitioning to a heart-healthy diet as tolerated. MEDICATIONS ON DISCHARGE: Aspirin 81 mg p.o. daily, [place] 10/325 1 p.o. q. 6 hours p.r.n. pain, Lopressor 12.5 mg p.o. b.i.d.. Jamar Walters MD TID: [id number] RECEIPT: [id number] [facility] cc: Elodia Hightower MD, Cruz Walters MD, Primary Physician
--- NOTE | 2025-04-09 11:10 | RADIOLOGY REPORT ---
CHEST RADIOGRAPH Indication: POST OP Technique: Single frontal view of the chest was obtained Comparison: DI CHEST,SINGLE VIEW on DOS: 04/08/25, DI CHEST,SINGLE VIEW on DOS: 04/07/25, DI CHEST,SING LE VIEW on DOS: 04/06/25, DI CHEST,TWO VIEWS on DOS: 04/03/25, DI CHEST,SINGLE VIEW on DOS: 04/08/25 FINDINGS: Lines and Tubes: Unchanged. Lungs: Clear Pleura: No effusion. No pneumothorax. Cardiomediastinal contours: Cardiomegaly. Bones: Unremarkable IMPRESSION: 1. Cardiomegaly. 2. Lines and tubes unchanged.
== END 2025-04-09 12:44 | disposition home or self-care (01) | DRG 221 ==
LOC: PAS IN 07:51 → CICU 2S 12:38 → PCU 3S 04-08 12:43
PROVIDERS: ADMIT Thoracic Surgery (Cardiothoracic Vascular Surgery); ATTEND Thoracic Surgery (Cardiothoracic Vascular Surgery)
PROC: 30233R1 Transfusion of Nonautologous Platelets into Peripheral Vein, Percutaneous Approach (ICD-10-PCS; 2025-04-06)
PROC: B24BZZ4 Ultrasonography of Heart with Aorta, Transesophageal (ICD-10-PCS; 2025-04-06)
PROC: 5A1221Z Performance of Cardiac Output, Continuous (ICD-10-PCS; 2025-04-06)
PROC: 02UG08Z Supplement Mitral Valve with Zooplastic Tissue, Open Approach (ICD-10-PCS; principal; 2025-04-06 11:55)
DX: I34.0 Nonrheumatic mitral (valve) insufficiency (principal); I48.91 Unspecified atrial fibrillation; D69.59 Other secondary thrombocytopenia; F10.10 Alcohol abuse, uncomplicated; J06.9 Acute upper respiratory infection, unspecified; D69.6 Thrombocytopenia, unspecified
CPT/HCPCS: 36415; 36430; 36600; 71045; 71046; 76376; 80048; 80053; 80076; 80320; 81001; 82330; 82435; 82803; 82947; 82948; 83036; 83735; 84100; 84132; 84295; 85007; 85018; 85025; 85347; 85610; 85730; 86885; 86900; 86901; 86920; 87070; 87081; 93005; 93312; 93325; 94002; 94640; 94664; 94668; 94760; A4618; A6212; A6213; A6258; A6449; A7000; A7048; C1751; G0378; J0169; J0282; J0690; J1100; J1644; J1815; J1885; J2003; J2150; J2250; J2270; J2371; J2405; J2704; J2720; J3373; J3375; J3480; J3490; J7030; J7040; J7050; J7060; J7120; P9035; P9045; P9047

== ENCOUNTER 2025-05-11 15:00 | Emergency (ER) | payer BC ==
[~2025-05-11] VITALS: Ht 177.8 cm; Wt 79.5 kg
[~2025-05-11 15:00] MED LIST changes: +ASPI81TA53 PO; +HYDR-3972 PO; +LOP12.5T PO; -LOSA-415 PO; -dextrose 50%-water 50ml dispensing syringe IV PRN; -insulin glargine (Lantus) pen - multi-dose SQ PRN; -midazolam 1 mg/ML 2ml injection IV PRN
[2025-05-11 15:05] VITALS: BP 119/84; PULSE 99; RESP 20; TEMP 97; O2SAT 97
--- NOTE | 2025-05-11 15:31 | Physician Documentation ---
History of Present Illness ~ Chief Complaint: Medical Clearance Stated Complaint: MED CLEARANCE Time Seen by MD: 15:14 Mode of Arrival: Police HPI Patient is seen today with complaints of needing med clearance to enter the pen[facility]. 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 Patient currently denies any chest pain or shortness of breath or abdominal pain or nausea, vomiting, diarrhea or dyspnea on exertion. Patient has no other concern or complaint at this time. Tetanus within 5 years?: No Medication Reconciliation Allergies: Coded Allergies: No Known Allergies (Unverified , 03/09/18) Scheduled Aspirin (Children's Aspirin), 81 MG PO Q24H@0830 Metoprolol Tartrate (Lopressor tablet), 12.5 MG PO Q12H Scheduled PRN Hydrocodone Bit/Acetaminophen (Hydrocodon-Acetaminophn 10-325 tablet), 1 TAB PO Q6H PRN for MODERATE PAIN 4-6 Review of Systems Constitutional: Denies: chills, fever, weakness Eyes: Denies: pain, blurred vision ENT: Denies: ear pain, nose pain, throat pain, mouth pain Respiratory: Denies: cough, shortness of breath Cardiovascular: Denies: chest pain, palpitations Gastrointestinal: Denies: abdominal pain, nausea, vomiting Genitourinary: Denies: burning, dysuria Male Genitalia: Denies: penile discharge, testicular pain Neurological: Denies: headache, dizziness Musculoskeletal: Denies: pain, swelling Integumentary: Denies: rash, lesions Allergic/Immunologic: Denies: hives, itching Hematologic/Lymphatic: Denies: no symptoms reported Psychiatric: Denies: depression, anxiety Physical Exam Vital Signs: Temperature: 97.0, Heart Rate: 99, Respiratory Rate: 20, BP: 119/84, Pulse Oximetry: 97, Weight: 79.500 Oxygen Flow Rate: 0 Physical Exam General: Awake and Alert, no acute distress. HEENT: Conjunctiva pink, Sclera clear, Mucus Membranes moist. Neck: Supple without masses and tenderness. Resp: Unlabored. Lungs clear to auscultation bilaterally. Heart: Regular Rate and rhythm, normal S1 and S2 without murmur, rub or gallop. Abdomen: Soft and non tender no organomegaly Extremities: No cyanosis,clubbing or edema. Skin: Warm and Dry. Progress Results/Orders Results/Orders Orders - ARELI DIAZ PAC Chest,Single View (05/11/25 15:30) Completed Orders - ARELI DIAZ PAC Electrocardiogram (05/11/25 15:30) Chest,Single View (05/11/25 15:30) Vital Signs 05/11/25 05/11/25 15:05 15:08 Temp 97.0 Pulse 99 Resp 20 B/P (MAP) 119/84 Pulse Ox 97 O2 Flow Rate 0 EKG/XRAY/CT/US/VASC/MRI EKG : Additional Comment EKG interpreted by myself today shows slightly bradycardic rate at 58 beats per minute, sinus rhythm, no ST segment elevation, no axis deviation. Medical Decision Making Findings Patient is seen today with complaints of needing med clearance to enter the penit[facility]. 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 Patient currently denies any chest pain or shortness of breath or abdominal pain or nausea, vomiting, diarrhea or dyspnea on exertion. Patient has no other concern or complaint at this time. Patient did have EKG and chest x-ray that were completely unremarkable other than the presence of a prosthetic valve on chest x-ray.. Patient is medically cleared from his recent open heart surgery and medically cleared to enter the penitentiary. Patient will return to ED with any worsening, concerning or changing symptoms. Departure Disposition: 01 HOME / SELF CARE / HOMELESS Impression: Primary Impression: General medical exam Condition: Stable Discharge Instructions: Medical Screening Exam Additional Instructions: Patient did have EKG and chest x-ray that were unremarkable other than the presence of a prosthetic valve on chest x-ray.. Patient is medically cleared from his recent open heart surgery and medically cleared to enter the penitentiary. Patient will return to ED with any worsening, concerning or changing symptoms. Referrals: NO PRIMARY CARE PROVIDER (PCP) Signature Scribe Signature: No scribe Attestation: No scribe ARELI DIAZ PAC May 11, 2025 15:31
--- NOTE | 2025-05-11 15:55 | ELECTROCARDIOGRAPH REPORT ---
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
--- NOTE | 2025-05-11 16:05 | RADIOLOGY REPORT ---
AP portable chest CLINICAL INDICATION: post op f/u Comparison: 04/09/2025 FINDINGS: Heart size is slightly enlarged. 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 No infiltrates or effusions IMPRESSION: 1. No acute cardiopulmonary pathology
== END 2025-05-11 16:14 | disposition home or self-care (01) ==
LOC: ER 15:01
DX: Z00.00 Encounter for general adult medical examination without abnormal findings (principal); Z79.82 Long term (current) use of aspirin; Z79.899 Other long term (current) drug therapy
CPT/HCPCS: 71045; 93005; 99283